=== PATIENT | female | born 1935 | race Caucasian/White ===

== ENCOUNTER → 2017-08-28 | Outpatient (CLI) | payer MEDICARE, BC ==
[~2017-08-28] MED LIST: ASCO1ER PO; CALCIUM MAG VIT D PO; COD LIVER OIL PO; CORTISONE TOP; Hair, Skin & N1 EACH PO
== END ==
LOC: PLD 09:45 → LAB SHORT 09:45
DX: L82.1 Other seborrheic keratosis (principal)
CPT/HCPCS: 88305

== ENCOUNTER 2021-08-03 11:52 | Day surgery (SDC) | payer MEDICARE, BC ==
[~2021-08-03] VITALS: Ht 167.6 cm; Wt 62.4 kg
--- NOTE | 2021-08-03 12:17 | NUR ---
08/03/21 1217 Urbano Antonio TETRACAINE IN LEFT EYE PER ORDERS 1211 PLEDGET AT 1214
--- NOTE | 2021-08-03 12:54 | NUR ---
08/03/21 1254 Hugo Flynn SCLERAL HEMORRHAGE NOTED IN LEFT EYE. PT STATES THIS WAS PRESENT WHEN SHE WOKE THIS MORNING. MUSTAPHA INJURY OR PAIN. STATES SHE THINKS IT MAY BE FROM HER EYE DROPS.
== END 2021-08-03 13:28 | disposition home or self-care (01) ==
LOC: ORSCSDS 11:52
PROVIDERS: Ophthalmology
PROC: 08RK3JZ Replacement of Left Lens with Synthetic Substitute, Percutaneous Approach (ICD-10-PCS; principal; 2021-08-03 13:00)
DX: H25.12 Age-related nuclear cataract, left eye (principal)
CPT/HCPCS: J2001; J2250; J3010; J3301; J7040; V2632

== ENCOUNTER 2021-08-31 07:13 | Day surgery (SDC) | payer MEDICARE, BC ==
[~2021-08-31] VITALS: Ht 170.2 cm; Wt 63.4 kg
--- NOTE | 2021-08-31 07:34 | NUR ---
08/31/21 0733 BRETT SANDRA TETRACAINE DROP INSTILLED AT 0729. PLEDGETT INSERTED AT 0732
== END 2021-08-31 09:12 | disposition home or self-care (01) ==
LOC: ORSCSDS 07:13
PROVIDERS: Ophthalmology
PROC: 08RJ3JZ Replacement of Right Lens with Synthetic Substitute, Percutaneous Approach (ICD-10-PCS; principal; 2021-08-31 08:30)
DX: H25.11 Age-related nuclear cataract, right eye (principal); Z79.899 Other long term (current) drug therapy
CPT/HCPCS: J2001; J3010; J3301; J7040; V2632

== ENCOUNTER → 2021-12-29 | Outpatient (CLI) | payer MEDICARE, BC | END | disposition home or self-care (01) | LOC: LAB 14:22 → PLD 14:22 → LAB SHORT 14:22 | DX: A18.4 Tuberculosis of skin and subcutaneous tissue (principal) | CPT/HCPCS: 88305 ==

== ENCOUNTER → 2022-01-05 | Outpatient (CLI) | payer MEDICARE, BC | END | disposition home or self-care (01) | LOC: LAB SHORT 18:30 → LAB 18:30 | DX: E55.9 Vitamin D deficiency, unspecified (principal) | CPT/HCPCS: 82306 ==

== ENCOUNTER → 2023-04-29 | Outpatient (CLI) | payer MEDICARE, BC ==
[2023-04-29 15:49] LABS: BASOPHILS ABSOLUTE AUTO 0.07 K/mm3 (0.00-0.23); BASOPHILS PERCENT AUTO 1 % (0-2); EOSINOPHILS ABSOLUTE AUTO 0.08 K/mm3 (0.00-0.68); EOSINOPHILS PERCENT AUTO 2 % (0-6); Hematocrit 42.3 % (33.0-51.0); Hemoglobin 14.1 g/dL (11.5-16.0); IMMATURE GRAN ABSOLUTE AUTO 0.01 K/mm3 (0.00-0.10); IMMATURE GRAN PERCENT AUTO 0 % (0-1); LYMPHOCYTES ABSOLUTE AUTO 1.04 K/mm3 (0.84-5.20); LYMPHOCYTES PERCENT AUTO 21 % (21-46); MONOCYTES ABSOLUTE AUTO 0.43 K/mm3 (0.16-1.47); MONOCYTES PERCENT AUTO 9 % (4-13); Mean Corpuscular HGB 32.3 pg (26.0-34.0); Mean Corpuscular HGB Conc 33.3 g/dL (31.5-36.5); Mean Corpuscular Volume 97 fL (80-100); Mean Platelet Volume 11.6 fL (9.1-12.4); NEUTROPHILS ABSOLUTE AUTO 3.41 K/mm3 (1.96-9.15); NEUTROPHILS PERCENT AUTO 68 % (41-73); Platelet Count 303 K/mm3 (150-400); RDW Coefficient Variation 13.8 % (11.7-14.2); RDW Standard Deviation 49.3 fL (35.1-46.3); Red Blood Cell Count 4.36 M/mm3 (3.80-5.20); White Blood Cell Count 5.04 K/mm3 (4.00-11.30)
[2023-04-29 16:41] LABS: Albumin, Blood 3.5 g/dL (3.4-5.0); Bilirubin, Total 0.7 mg/dL (0.1-1.0); Bun/Creatinine Ratio 25.8 (12.0-20.0); Calcium, Blood 9.6 mg/dL (8.5-10.1); Creatinine, Blood 0.81 mg/dL (0.40-1.00); Globulin, Blood 3.4 g/dL (2.2-4.0); Potassium, Blood 4.1 mmol/L (3.5-5.5); Total Protein, Blood 6.9 g/dL (6.4-8.2)
== END ==
LOC: LAB 11:54 → LAB SHORT 11:54
PROVIDERS: Nurse Practitioner Family
DX: E78.5 Hyperlipidemia, unspecified (principal)
CPT/HCPCS: 80053; 85025